=== PATIENT | female | born 1970 | race Caucasian/White ===

== ENCOUNTER 2019-09-29 17:33 | Emergency (ER) | payer OTHER, SELFPAY ==
[2019-09-29 17:34] VITALS: BP 161/98; PULSE 95; RESP 16; TEMP 36.3; O2SAT 99; BMI 37.1
--- NOTE | 2019-09-29 17:59 | RAD_ITS ---
STUDY: X-RAY RIGHT FOOT, BIG TOE REASON FOR EXAM: Female, 49 years old. laceration to bottom of right big toe, looking for foreign body TECHNIQUE: view(s) of the toe were obtained. COMPARISON: None. FINDINGS: Normal visualized metatarsus. Normal metatarsophalangeal (M.T.P) joint. Normal interphalangeal joints. Normal phalanges and interphalangeal joints. The soft tissue structures are unremarkable. There is no radiopaque foreign body. RAD/Toe(s) Min 2 Views IMPRESSION: No radiopaque foreign body. Please note that many objects are not radiopaque, such as plastic, glass, would, etc. Referred to alternative evaluation if that is suspected. Electronically Signed: Jeff Blanco, at 18:17 EST Tel , Service support ,
[2019-09-29] MEDS: Diphth,Pertuss(Acell),Tet Vac 0.5 ML Vial IM (18:06)
--- NOTE | 2019-09-29 18:09 | ED.VIS.LOWEX ---
History of Present Illness Chief Complaint: Laceration Informant: Patient Occurred: Hours - 1 Mechanism/Context: Incised Context: Sudden Onset Timing: Continuous Quality of Pain: - - sore Location: right great toe Current Severity: Mild Maximum Severity: Mild Worsened by: walking Relieved by: rest Associated Symptoms: Negative for: Parasthesia, Weakness, Loss of Funtion Narrative: Patient went outside to walk her dog and inadvertently stepped on something, she never saw it, did not hurt very bad but then she saw blood and noticed that he sustained a laceration on the bottom of her foot. She does not feel like there is a foreign body. She does not have a lot of pain. Tetanus Immunization: >10 years Past Medical History - Allergies and Home Meds Allergies/Adverse Reactions: Allergies No Known Allergies Allergy (Verified 10/30/16 23:15) Primary Care Physician: Jovanni Emery III, MD [Primary Care Provider] - Past Medical History: None Lives: With Family Smoking Status: Never smoker Review of Systems Musculoskeletal: Reports: Extremity Pain Skin: Reports: Wounds Neurological: Denies: Weakness, Numbness Physical Exam Vital Signs/Narrative: Vital Signs Temp Pulse Resp BP Pulse Ox 09/29/19 17:34 97.4 F L 95 16 161/98 H 99 Inital Vital Signs reviewed: Yes - Extremity Exam Right Foot: - - 3 cm irregular full-thickness clean-appearing laceration to the plantar aspect of the right great toe, at the crease of the proximal aspect of the proximal phalanx. No bony tenderness. No foreign body seen or palpable.. Negative for: Limited ROM General: Well nourished, Well developed Head: Normocephalic, Atraumatic Skin: Trauma - Laceration to plantar aspect of right great toe, see above Neurological: Alert, Oriented x3, Cranial nerves II-XII grossly intact, Normal Strength, Normal Sensation Psychological: Normal affect, Normal Mood Diagnostic/Tx/Re-eval Clinical Impression(s) from Imaging Studies Toe X-Ray 09/29/19 17:59 IMPRESSION: No radiopaque foreign body. Please note that many objects are not radiopaque, such as plastic, glass, would, etc. Referred to alternative evaluation if that is suspected. Electronically Signed: Jeff Blanco, at 18:17 EST Tel , Service support , - Medical Decision Making Tetanus was updated, laceration was repaired, she was placed on prophylactic antibiotics given that it is on the plantar aspect of her foot. It is noted that she washed it with peroxide and we irrigated under pressure prior to repair. Sutures out in 10-14 days, she should present to ER, urgent care, or her PCP for reevaluation of the wound. Procedures - Lacerations Right foot Length: 3 cm Depth: Sub Q Shape: Linear - Somewhat irregular Prep: Sterile Conditions, Chlorhexadine Laceration repair: Irrigated, Local - 5 cc plain 1% lidocaine, Skin sutures Irrigated (ml): 50 - Under pressure Number of Sutures/[place]: 6 Suture Information: Ethilon, Simple, 5-0 ED Disposition - Plan for ED Patient: Disposition: Home or Assisted Living Diagnosis: Laceration of plantar aspect of right foot, Tetanus-diphtheria (Td) vaccination Instructions: LACERATION, Foot Prescriptions: Cephalexin [Keflex] 500 mg PO TID #15 cap Prescription Printed Referrals: Jovanni Emery III, MD [Primary Care Provider] - 10-14 Days suture removal
[2019-09-29] MEDS: Cephalexin 250 MG Capsule 500 MG PO (19:21)
[2019-09-29 19:33] VITALS: RESP 16
== END 2019-09-29 19:34 | disposition home or self-care (01) ==
PROVIDERS: Emergency Provider Emergency Medicine; Family Provider Family Medicine; PCP Family Medicine
DX: S91.111A Laceration without foreign body of right great toe without damage to nail, initial encounter (principal); Z23 Encounter for immunization; W26.9XXA Contact with unspecified sharp object(s), initial encounter; Y93.01 Activity, walking, marching and hiking; Y92.89 Other specified places as the place of occurrence of the external cause; Y99.8 Other external cause status
CPT/HCPCS: 12002; 73660; 90471; 90715; 99284

== ENCOUNTER 2020-08-15 14:34 | Emergency (ER) | payer OTHER, SELFPAY ==
[2020-08-15 14:35] VITALS: BP 154/87; PULSE 105; RESP 18; TEMP 36.8; O2SAT 99; BMI 43.5
--- NOTE | 2020-08-15 15:55 | CT_ITS ---
STUDY: CT SOFT TISSUE NECK WITH CONTRAST REASON FOR EXAM: Female, 50 years old. RT TONSILLAR ABSCESS, SORE THROAT, CHILLS RADIATION DOSAGE (If Supplied By Facility): CTDIvol = ( 20.60 ) mGy, DLP = ( 560.93 ) mGycm TECHNIQUE: The patient was scanned in a multi-detector CT scanner. High resolution transaxial imaging was performed following intravenous administration of IV 100mL Isovue-370. Sagittal and coronal images were reconstructed. Individualized dose optimization techniques were used for this CT. COMPARISON: None. FINDINGS: There is a 1.4 cm solid right upper lobe pulmonary nodule. Remainder of the lung apices are clear. Normal bilateral parotid glands. Normal bilateral credit collections specialist spaces. Normal bilateral parapharyngeal spaces. Normal bilateral carotid spaces. Normal bilateral sublingual and submandibular glands and spaces. Normal visualized nasopharynx. Normal retropharyngeal space. Normal perivertebral space. Right pharyngeal tonsil is enlarged and inflamed, left is normal. There is no tonsillar/peritonsillar abscess. Normal visualized bilateral faucial tonsils. The visualized tongue, tongue base and oropharynx are normal. There are right submandibular and jugulodigastric bilateral, right greater than left, reactive benign-appearing lymph nodes. There is no demonstrated solid or cystic mass lesion. There is no abnormal contrast enhancement. Normal epiglottis, bilateral vallecula and hypopharynx. The pre-epiglottic and paraglottic adipose spaces are normal. Normal visualized bilateral piriform sinuses, aryepiglottic folds, vocal cords, and arytenoid-cricoid articulations. Normal subglottic trachea. Normal bilateral lobes of the thyroid gland. Normal visualized pulmonary apices. Normal visualized paranasal sinuses. Normal visualized cervical spine. CT/Soft Tissue Neck WITH Contrast IMPRESSION: 1. Right pharyngeal tonsillitis without abscess. 2. Right upper lobe 1.4 cm nodule, unknown etiology. Refer to full CT chest for assessment. Electronically Signed: Sage Zepeda/11/21 at 17:34 EST Tel , Service support ,
[2020-08-15] MEDS: 0.9% Normal Saline 1,000 ML 1000 ML IV (16:09)
[2020-08-15] MEDS: dexAMETHasone 10 MG/ML Vial IV (16:10)
[2020-08-15 16:13] VITALS: BP 154/87; PULSE 105; RESP 18; TEMP 36.8; O2SAT 99
[2020-08-15 16:33] LABS: Absolute Lymphocyte Count 1.77 X10^3/uL (0.83-4.51); Absolute Neutrophil Count 9.6 X10^3/uL (2.0-7.7); Basophil# 0.04 X10^3/uL; Basophil% 0.3 % (0-1); Eosinophil# 0.02 X10^3/uL; Eosinophils% 0.2 % (0-5); Hematocrit 41.3 % (37-47); Hemoglobin 12.4 g/dL (12.0-15.0); Lymphocyte # 1.77 X10^3/ul (4.0); Lymphocyte % 14.2 % (19-41); Mean Corpuscular Hgb 24.3 pg (27.0-32.0); Mean Platelet Vol. 10.9 fl (6.2-12.0); Monocyte# 1.02 X10^3/uL; Monocyte% 8.2 % (0-10); NRBC Flagged by Analyzer 0 % (0-5); Neutrophil # 9.58 X10^3/uL (2.7-7.7); Neutrophil % 76.8 % (47-70); Platelet Count 337 K/mm3 (150-450); RBC Distribution Width CV 14.9 % (11.6-14.6); RBC Distribution Width SD 43.8 fl (35.1-43.9); White Blood Count 12.5 K/mm3 (4.4-11.0)
[2020-08-15 16:37] LABS: Anion Gap 7 (5-15); BUN 7 mg/dL (7-18); BUN/Creat Ratio 8.8 RATIO (10-20); Chloride 104 mmol/L (98-107); Creatinine, Serum 0.79 mg/dL (0.55-1.02); EST Glomerular Filtration Rate 82 mL/min (>60); Est Glom Filt Rate - Afr Amer 99 mL/min (>60); Estimated Creatinine Clearance 80.64 ml/min; Glucose 90 mg/dL (74-106); Potassium 3.5 mmol/L (3.5-5.1); Sodium Level 136 mmol/L (136-145)
[2020-08-15 16:38] LABS: Internal QC Validated? YES +Cl - CLEAR BKGD; Pregnancy, Serum, hCG Quali. NEGATIVE Negative
--- NOTE | 2020-08-15 17:47 | ED.DCSUM_ITS ---
- ER Visit Summary Date of Service: 08/15/20 Chief Complaint: Sore throat History of Present Illness: The patient is a [address] Jovanni Emery. She reports that she has a sore throat that began yesterday. It is a sharp pain that is 9 and 10 at worst and 6 out of 10 currently. Is worsened by swallowing the by Tylenol. She had chills, but no fever. She reports that she has mild right ear pain. She denies any cough or other complaints. Physical Examination: Vitals: Stable. Afebrile. General: Well-nourished and well-developed. Head: Normocephalic atraumatic. HEENT: Is significant right-sided tonsillar swelling with erythema and a fullness to the soft palate. There is no uvular shift. There is a large ulcer on the medial side of her tonsil itself. There is tender cervical lymphadenopathy that is anterior in location. Neck: Supple. No JVD. Nontender. Cardiovascular: Regular rate and rhythm. No murmurs. Respiratory: No respiratory distress. Clear to auscultation bilaterally. Abdominal: Soft, nontender, nondistended, normal bowel sounds. No guarding, rebound, or peritoneal signs. Back: Nontender. Extremities: Nontender, no edema. Skin: Normal color, no rash. Neurologic: Alert and oriented ?3. Cranial nerves II through XII are intact. Normal strength and sensation. Psych: Normal affect. Test Results: CBC shows a white count of 12.5 with 77 segmented neutrophils and 14 lymphocytes. Chem-7 is normal. Rapid strep is negative. test is negative. Clinical Impression(s) from Imaging Studies Soft Tissue Neck CT 08/15/20 15:55 IMPRESSION: 1. Right pharyngeal tonsillitis without abscess. 2. Right upper lobe 1.4 cm nodule, unknown etiology. Refer to full CT chest for assessment. Electronically Signed: Cedevyn Francis, at 17:34 EST Tel , Service support , Emergency Department Course and Treatment: Patient was given Unasyn and dexamethasone IV. She refused pain medications. I did discuss with her the pulmonary nodule on her CT. She does not want to have a CT of her chest at this time. Treatment Plan: Patient will be discharged with Augmentin. She refused pain medications. She is instructed to follow-up with her primary care physician for further evaluation of the pulmonary nodule. She is instructed to follow-up with Dr. Horne in 3 to 5 days for her throat. Return to the emergency department for any worsening symptoms. Disposition: To home in improved and stable condition. Impression: 1. Tonsillitis on the right. 2. Pulmonary nodule. This note was generated with [employer] software. It may contain incorrect words, spelling, and punctuation that were not noted in review of the chart prior to signing ED Disposition - Plan for ED Patient: Instructions: ED Tonsillitis, ED Nodule Solitary Pulmonary Prescriptions: Amox/Clavulanate Tablet [Augmentin Tablet] 875 mg PO Q12H #20 tablet Referrals: Jovanni Emery III, MD [Primary Care Provider] - As soon as possible Redd Ramirez MD [STAFF PHYSICIAN] - 3-5 Days
[2020-08-15 17:57] VITALS: BP 127/80; PULSE 101; RESP 18
== END 2020-08-15 17:58 | disposition home or self-care (01) ==
LOC: ED 16:05
PROVIDERS: Emergency Provider Emergency Medicine; PCP Family Medicine
DX: J03.90 Acute tonsillitis, unspecified (principal)
CPT/HCPCS: 70491; 80048; 84703; 85025; 87880; 96374; 99283; J7030; Q9967; A4216